=== PATIENT | male | born 1995 | race Caucasian/White ===

== ENCOUNTER 2018-08-15 13:01 | Emergency (ER) | payer SELFPAY ==
[~2018-08-15] VITALS: Ht 170.2 cm; Wt 104.3 kg
[~2018-08-15 13:01] MED LIST: ACHD5005 PO; CIPR-225 PO; CYCL10TA9 PO; HYDR-4226 PO; HYDR-757 PO; NAPR220T29 PO; ONDA4TAB8 SL; SUCR1TAB PO; SULF-222 PO
--- NOTE | 2018-08-15 13:50 | ED Integumentary General ---
General Chief Complaint: Skin/Wound Problems Stated Complaint: TESTICULAR SWELLING Nursing Triage Note: STATES HE WOKE UP THIS AM ET HIS LOWER ABD/PUBIS AREA WAS SWOLLEN, RED, ET PAINFUL. Source: patient Exam Limitations: no limitations History of Present Illness Date Seen by Provider: Aug 15, 2018 Time Seen by Provider: 13:38 Initial Comments Here with report of redness in the area of the pubis. Onset this morning. States that it is tender. States he may have a little red spot yesterday. Denies dysuria. Denies any specific wound or problem. 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 States that he sweats at night when he sleeps. Denies ever having anything like this before. Timing/Duration: yesterday, getting worse Severity: moderate Location: genitalia Possible Cause: no cause identified Associated Symptoms: edema, rash, other (erythema) Allergies and Home Medications Allergies Coded Allergies: No Known Drug Allergies (Unverified , 05/20/14) Home Medications Ciprofloxacin HCl 500 Mg Tablet, 500 MG PO BID Prescribed by: WES TERAN on 06/12/15 2338 Hydrocodone Bit/Acetaminophen 1 Each Tablet, 1-2 EACH PO Q6H PRN for PAIN Prescribed by: WES TERAN on 06/12/15 2338 Hydrocodone/Acetaminophen 1 Each Tablet, 1 EACH PO Q4H PRN for PAIN Prescribed by: JUAN ANTONIO WALKER on 04/17/16 1736 Ondansetron 4 Mg Tab.rapdis, 4 MG SL Q4H PRN for NAUSEA/VOMITING Prescribed by: WES TERAN on 06/12/15 2338 Sucralfate 1 G Tablet, 1 G PO AC Prescribed by: JUAN ANTONIO WALKER on 08/26/14 1705 Patient Home Medication List Home Medication List Reviewed: Yes Review of Systems Review of Systems Constitutional: see HPI; No chills, No fever Respiratory: no symptoms reported Cardiovascular: no symptoms reported Genitourinary: no symptoms reported Skin: see HPI, change in color, rash Psychiatric/Neurological: No Symptoms Reported Past Saipxsh-Mzmpwt-Djhpdr Hx Past Med/Social Hx: Reviewed Nursing Past Med/Soc Hx Patient Social History Alcohol Use: Occasionally Uses Recreational Drug Use: Yes Drug of Choice: marijuana Type Used: Cigarettes 2nd Hand Smoke Exposure: Yes Recent Foreign Travel: No Contact w/Someone Who Travel: No Recent Infectious Disease Expo: No Recent Hopitalizations: No Physical Abuse: No Sexual Abuse: No Immunizations Up To Date Tetanus Booster (TDap): Unknown Seasonal Allergies Seasonal Allergies: No Past Medical History Surgeries: No Respiratory: Yes Asthma Cardiac: No Neurological: No Reproductive Disorders: No Gastrointestinal: No Musculoskeletal: No Endocrine: No Cancer: No Psychosocial: No Integumentary: No Blood Disorders: No Family Medical History Reviewed Nursing Family Hx Physical Exam Vital Signs Vital Signs - First Documented 08/15/18 13:14 Temp 97.4 Pulse 103 Resp 18 B/P (MAP) 142/95 (111) Pulse Ox 97 O2 Delivery Room Air Capillary Refill : Less Than 3 Seconds General Appearance: WD/WN, no apparent distress Cardiovascular: regular rate, rhythm, no murmur Respiratory: lungs clear, normal breath sounds Skin: warm/dry, other (erythema) Skin Problem Location: other (groin to the pubis area and does seem to involve the scrotum but not the penis.) Skin Problem Character: erythema, rash, warm Progress/Results/Core Measures Results/Orders Vital Signs/I&O 08/15/18 13:14 Temp 97.4 Pulse 103 Resp 18 B/P (MAP) 142/95 (111) Pulse Ox 97 O2 Delivery Room Air Blood Pressure Mean: 111 Progress Progress Note : Progress Note Seen and evaluated. Fingerstick blood sugar ordered. Has appearance of tinea infection and we will treat as such although we will go ahead and do antibiotics as well. This was discussed with the patient who agrees. Discharged home with return precautions. Patient verbalize understanding instructions and agreement with plan. Departure Impression Primary Impression: Tinea of groin Disposition: 01 HOME, SELF-CARE Condition: Improved Departure-Patient Inst. Decision time for Depature: 13:54 Referrals: NO,LOCAL PHYSICIAN (PCP/Family) Primary Care Physician Patient Instructions: Folliculitis (DC), Jock Itch (DC) Add. Discharge Instructions: All discharge instructions reviewed with patient and/or family. Voiced understanding. Take medications as directed. You may pepper picker fqxm-hdq-bpvlsvx jock itch medicine and use per package directions. Keep area clean and dry otherwise. Prevent from overheating to the area as this will increase the likelihood of infection. Return for worse pain, swelling, fevers, drainage or other concerns as needed. Follow-up with your in a few days for recheck as needed. Scripts Sulfamethoxazole/Trimethoprim (Sulfamethoxazole-Tmp Ds Tablet) 1 Each Tablet 1 EACH PO BID, #14 TAB 0 Refills Prov: AVANI INGRAM MD 08/15/18 AVANI INGRAM MD Aug 15, 2018 13:50
[2018-08-15] MEDS ORDERED: SULF-222 PO (13:56)
[2018-08-15 14:01] VITALS: BP 140/97
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
== END 2018-08-15 14:00 | disposition home or self-care (01) ==
LOC: EDUNIT# 13:01 → ER 13:03
DX: B35.6 Tinea cruris (principal); J45.909 Unspecified asthma, uncomplicated; F12.10 Cannabis abuse, uncomplicated; Z77.22 Contact with and (suspected) exposure to environmental tobacco smoke (acute) (chronic)
CPT/HCPCS: 82962

== ENCOUNTER 2018-08-19 09:29 | Emergency (ER) | payer SELFPAY | END 2018-08-19 10:51 | disposition home or self-care (01) | LOC: ER 09:29 ==

== ENCOUNTER 2019-04-28 07:14 | Emergency (ER) | payer SELFPAY ==
[~2019-04-28] VITALS: Ht 162.5 cm; Wt 102.3 kg
[~2019-04-28 07:14] MED LIST changes: +SULF1TAB35 PO
--- NOTE | 2019-04-28 07:42 | ED Cough/URI ---
General Stated Complaint: SORE THROAT / COUGH Source: patient History of Present Illness Date Seen by Provider: Apr 28, 2019 Time Seen by Provider: 07:27 Initial Comments PT ARRIVES VIA POV FROM HOME C/O NASAL CONGESTION AND DRAINAGE, WITH PRODUCTIVE COUGH / YELLOW SPUTUM FOR THE LAST 2 WEEKS HAD SUBJECTIVE FEVER/SWEATS/CHILLS LAST POM + SHORTNESS OF BREATH AT TIMES NO CHEST PAIN, EXCEPT FROM COUGHING C/O SORE THROAT NO SICK CONTACTS TOOK OTC ALLERGY PILLS WITHOUT RELIEF SEEN AT [facility] 4-5 DAYS AGO, NO TESTS DONE, GIVEN RX FOR STEROIDS--NO IMPROVEMENT HAD ASTHMA A CHILD, OTHERWISE NO RESPIRATORY PROBLEMS AN ADULT PT SMOKES 1/2 PPD CIGARETTES, PLUS SMOKES MARIJUANA PCP: [facility] Allergies and Home Medications Allergies Coded Allergies: No Known Drug Allergies (Unverified , 05/20/14) Patient Home Medication List Home Medication List Reviewed: Yes Review of Systems Review of Systems Constitutional: see HPI, chills, diaphoresis, fever EENTM: see HPI, nose congestion, throat pain Respiratory: see HPI, cough, short of breath Cardiovascular: no symptoms reported Gastrointestinal: no symptoms reported Genitourinary: no symptoms reported Musculoskeletal: no symptoms reported Skin: no symptoms reported Psychiatric/Neurological: No Symptoms Reported Hematologic/Lymphatic: No Symptoms Reported Immunological/Allergic: no symptoms reported Past Sufohok-Ldokza-Cgqigc Hx Past Med/Social Hx: Reviewed and Corrections made Patient Social History Alcohol Use: Occasionally Uses Recreational Drug Use: Yes (THC) Drug of Choice: THC Smoking Status: Current Everyday Smoker (1 PPD) Type Used: Cigarettes (1 PPD) 2nd Hand Smoke Exposure: Yes Recent Foreign Travel: No Contact w/Someone Who Travel: No Recent Hopitalizations: No Immunizations Up To Date Tetanus Booster (TDap): Unknown Seasonal Allergies Seasonal Allergies: No Past Medical History Surgeries: No Respiratory: Yes (ASTHMA CHJLD) Asthma Cardiac: No Neurological: No Reproductive Disorders: No Gastrointestinal: No Musculoskeletal: No Endocrine: No Cancer: No Psychosocial: Yes Depression Integumentary: No Blood Disorders: No Physical Exam Vital Signs - First Documented 04/28/19 07:27 Temp 35.9 Pulse 84 Resp 18 B/P (MAP) 130/94 (106) Pulse Ox 99 O2 Delivery Room Air Capillary Refill : Height: 5'7.00" Weight: 230lbs. oz. 104.276408ee; BMI Method:Stated General Appearance: WD/WN, no apparent distress HEENT: PERRL/EOMI, other (NASAL CONGESTION AND CLEAR RHINORRHEA. NO SINUS TENDERNESS. 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, no motor/sensory deficits, alert, normal mood/affect, oriented x 3 Skin: normal color, tattoos/piercings Progress/Results/Core Measures Suspected Sepsis SIRS Temperature: Pulse: Respiratory Rate: Blood Pressure / Mean: Results/Orders Lab Results Laboratory Tests Test 04/28/19 07:36 Range/Units Group A Streptococcus Screen NEGATIVE NEGATIVE Micro Results Microbiology 04/28/19 Influenza Types A,B Antigen (VALERIANO) - Final, Complete My Orders Orders - ALY OLIVEIRA DO Chest Pa/Lat (2 View) (04/28/19 07:36) Rapid Strep A Screen (04/28/19 07:36) Influenza A And B Antigens (04/28/19 07:36) Vital Signs/I&O 04/28/19 07:27 Temp 35.9 Pulse 84 Resp 18 B/P (MAP) 130/94 (106) Pulse Ox 99 O2 Delivery Room Air Capillary Refill : Diagnostic Imaging Comments CXR--NO ACUTE PROCESS, PER RADIOLOGIST REPORT AT 0818 Reviewed: Reviewed by Me Departure Impression Primary Impression: Bronchitis Additional Impression: Upper respiratory infection Disposition: 01 HOME, SELF-CARE Condition: Stable Departure-Patient Inst. Referrals: [facility] Patient Instructions: Acute Bronchitis, Adult (DC), Bacterial Upper Respiratory Infection, Adult (DC) Add. Discharge Instructions: USE FLONASE DAILY TYLENOL AND MOTRIN NEEDED FOR PAIN OR FEVER LOTS OF FLUIDS FOLLOW UP WITH [facility] IN 3-4 DAYS IF NO BETTER Scripts Benzonatate (TESSALON PERLES) 100 Mg Capsule 1-2 TAB PO TID for Cough, #30 CAP Prov: ALY OLIVEIRA DO 04/28/19 Guaifenesin/Dextromethorphan (Mucinex Dm ER 1,200-60 mg Tab) 1 Each Tbmp.12hr 1 EACH PO BID for 10 Days, #20 EA Prov: ALY OLIVEIRA DO 04/28/19 Methylprednisolone (Medrol) 4 Mg Tab.ds.pk 4 MG PO UD, #1 PKG Prov: ALY OLIVEIRA DO 04/28/19 Loratadine/Pseudoephedrine (Claritin-D 12 Hour Tablet) 1 Each Tab.er.12h 1 EACH PO BID, #20 TAB Prov: ALY OLIVEIRA DO 04/28/19 Amoxicillin/Potassium Clav (Augmentin 875-125 Tablet) 1 Each Tablet 1 EACH PO BID for INFECTION, #20 TAB Prov: ALY OLIVEIRA DO 04/28/19 Work/School Note: Work Release Form Date Seen in the Emergency Department: Apr 28, 2019 Return to Work: Apr 30, 2019 Restrictions: No Restrictions ALY OLIVEIRA DO Apr 28, 2019 07:42
--- NOTE | 2019-04-28 08:14 | Diagnostic Imaging Report ---
CHEST PA/LAT (2 VIEW) Indication: Sore throat, congestion and cough Comparison: 08/26/2014 Findings: No focal pneumonic consolidation, pleural effusion or pneumothorax. Normal heart size and pulmonary vasculature. Impression: No acute cardiopulmonary process. Dictated by: Dictated on workstation # [id number]
[2019-04-28] MEDS ORDERED: AMOX-358 PO (08:22)
[2019-04-28] MEDS ORDERED: GUAI1TBM19 PO (08:22)
[2019-04-28] MEDS ORDERED: BENZ100C18 PO (08:22)
[2019-04-28] MEDS ORDERED: LORA1TAB59 PO (08:22)
[2019-04-28] MEDS ORDERED: METH4TAB PO (08:22)
[2019-04-28 08:38] VITALS: BP 130/94
== END 2019-04-28 08:39 | disposition home or self-care (01) ==
LOC: EDUNIT# 07:14 → ER 07:15
DX: J45.909 Unspecified asthma, uncomplicated (principal); J06.9 Acute upper respiratory infection, unspecified; F32.9 Major depressive disorder, single episode, unspecified; F17.210 Nicotine dependence, cigarettes, uncomplicated
CPT/HCPCS: 71046; 87430; 87804

== ENCOUNTER 2019-06-27 07:56 | Emergency (ER) | payer SELFPAY ==
[~2019-06-27] VITALS: Ht 170 cm; Wt 200.0 kg
[~2019-06-27 07:56] MED LIST changes: +AMOX-358 PO; +BENZ100C18 PO; +GUAI1TBM19 PO; +LORA1TAB59 PO; +METH4TAB PO
[2019-06-27] MEDS ORDERED: RT-ALBUINH IH (08:32)
--- NOTE | 2019-06-27 08:35 | ED Cough/URI ---
General Chief Complaint: Cough/Cold/Flu Symptoms Stated Complaint: SORE THROAT/WEEZING Nursing Triage Note: PT CO OF COUGH AND WHEEZING FOR APPROX 3 DAYS, PT HAS SORETHROAT FROM COUGH. PT DENIES FEVER Sepsis Screen: No Definite Risk Source: patient Exam Limitations: no limitations History of Present Illness Date Seen by Provider: Jun 27, 2019 Time Seen by Provider: 08:22 Initial Comments This 23-year-old young man presents to the emergency room with complaints of cough, congestion, sore throat, and wheezing for the past 3 days. He denies any fever. Patient is noted to have hypertension on assessment. He reports a history of chronic hypertension and reports he is supposed to be taking antihypertensive medications. He had an old prescription of Bromfed which he has tried without much benefit. He took a dose this morning. He does not smoke. Allergies and Home Medications Allergies Coded Allergies: No Known Drug Allergies (Unverified , 05/20/14) Home Medications Albuterol Sulfate 1 Puff Puff, 1-4 PUFF IH Q4H 1 PUFF = 90 MCG Prescribed by: WES TERAN on 06/27/19831 Amoxicillin/Potassium Clav 1 Each Tablet, 1 EACH PO BID Prescribed by: ALY OLIVEIRA on 04/28/19821 Benzonatate 100 Mg Capsule, 1-2 TAB PO TID Prescribed by: ALY OLIVEIRA on 04/28/19821 Guaifenesin/Dextromethorphan 1 Each Tbmp.12hr, 1 EACH PO BID Prescribed by: ALY OLIVEIRA on 04/28/19821 Loratadine/Pseudoephedrine 1 Each Tab.er.12h, 1 EACH PO BID Prescribed by: ALY OLIVEIRA on 04/28/19821 Methylprednisolone 4 Mg Tab.ds.pk, 4 MG PO UD Prescribed by: ALY OLIVEIRA on 04/28/19821 Patient Home Medication List Home Medication List Reviewed: Yes Review of Systems Review of Systems Constitutional: no symptoms reported EENTM: see HPI Respiratory: see HPI Cardiovascular: see HPI Gastrointestinal: no symptoms reported Genitourinary: no symptoms reported Musculoskeletal: no symptoms reported Skin: no symptoms reported Psychiatric/Neurological: No Symptoms Reported Hematologic/Lymphatic: No Symptoms Reported Past Mzqnlfs-Foicbb-Ykeeai Hx Past Med/Social Hx: Reviewed Nursing Past Med/Soc Hx Patient Social History Alcohol Use: Denies Use Recreational Drug Use: No Drug of Choice: THC Smoking Status: Never a Smoker Type Used: Cigarettes 2nd Hand Smoke Exposure: Yes Recent Foreign Travel: No Contact w/Someone Who Travel: No Recent Infectious Disease Expo: No Recent Hopitalizations: No Physical Abuse: No Sexual Abuse: No Immunizations Up To Date Tetanus Booster (TDap): Unknown PED Vaccines UTD: Yes Seasonal Allergies Seasonal Allergies: No Past Medical History Surgeries: No Respiratory: Yes (ASTHMA CHJLD) Asthma Cardiac: No Neurological: No Reproductive Disorders: No Gastrointestinal: No Musculoskeletal: No Endocrine: No Cancer: No Psychosocial: Yes Depression Integumentary: No Blood Disorders: No Physical Exam Vital Signs - First Documented 06/27/19 06/27/19 08:00 08:42 Temp 36.4 Pulse 100 Resp 18 B/P (MAP) 154/101 (118) Pulse Ox 98 Capillary Refill : Less Than 3 Seconds Height: 5'7.00" Weight: 230lbs. oz. 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, no motor/sensory deficits, alert, normal mood/affect, oriented x 3 Skin: normal color, warm/dry Progress/Results/Core Measures Suspected Sepsis Recent Fever Within 48 Hours: No Infection Criteria Present: None New/Unexplained Altered Menta: No Sepsis Screen: No Definite Risk SIRS Temperature: Pulse: 100 Respiratory Rate: 18 Blood Pressure 154 /101 Mean: 118 Results/Orders Vital Signs/I&O 06/27/19 06/27/19 08:00 08:42 Temp 36.4 36.4 Pulse 100 100 Resp 18 18 B/P (MAP) 154/101 (118) 154/101 (118) Pulse Ox 98 Capillary Refill : Less Than 3 Seconds Blood Pressure Mean: 118 POS Progress Note : Progress Note Patient appears to have viral URI with bronchitis/bronchospasm. He was prescribed an albuterol inhaler and instructions for use were reviewed. We also discussed his cerumen impaction. He is in the habit of using Q-tips and we discussed proper use of Q-tips for the external room only. I advised him to use ehqg-xae-wlzkzxh earwax removal drops to eliminate the cerumen impaction. I advised him to follow-up with a primary care provider for treatment of his hypertension. I also advised him to avoid any stimulant decongestant medications other than possibly short-term use of Afrin to avoid exacerbation of his hypertension. Departure Impression Primary Impression: Acute bronchitis Qualified Codes: J20.9 - Acute bronchitis, unspecified Additional Impressions: Hypertension Qualified Codes: I10 - Essential (primary) hypertension Cerumen impaction Qualified Codes: H61.23 - Impacted cerumen, bilateral Disposition: 01 HOME, SELF-CARE Condition: Stable Departure-Patient Inst. Referrals: NO,LOCAL PHYSICIAN (PCP/Family) Primary Care Physician Patient Instructions: Acute Bronchitis, Adult (DC), High Blood Pressure in Adults Add. Discharge Instructions: Use your inhaler up to 4 puffs and a 4 hour period of time for her wheezing and shortness of breath. Follow-up with a primary care provider regarding your high blood pressure (hypertension). Do not use any cough or cold medications that contain a decongestant such as phenylephrine or pseudoephedrine. Review the label including active ingredients on the back label before using any xpga-eru-vexfyjy cough or cold medications. Decongestant medications may increase your blood pressure. You may use a nasal steroid such as Flonase to help reduce inflammation and drainage in the nasal cavity. If congestion is intolerable, short-term use (no greater than 3 days) of Afrin may be acceptable. Return to care if you have worsening symptoms or develop new symptoms such as high fever, shortness of breath not responsive to your inhaler, etc. You may use Tylenol (acetaminophen) and/or ibuprofen for minor aches and pains. All discharge instructions reviewed with patient and/or family. Voiced understanding. Scripts Albuterol Sulfate (PROAIR HFA) 1 Puff Puff 1-4 PUFF IH Q4H, #1 PUFF 1 PUFF = 90 MCG Prov: WES MONROE MD 11/13/19 Work/School Note: Work Release Form Date Seen in the Emergency Department: Jun 27, 2019 Return to Work: Jun 28, 2019 Restrictions: Return-No Vomiting(24hrs) WES MONROE MD Jun 27, 2019 08:35 POS
[2019-06-27 08:42] VITALS: BP 154/101
== END 2019-06-27 08:44 | disposition home or self-care (01) ==
LOC: EDUNIT# 07:56 → ER 07:58
DX: J20.9 Acute bronchitis, unspecified (principal); I10 Essential (primary) hypertension; H61.23 Impacted cerumen, bilateral; J45.909 Unspecified asthma, uncomplicated; F32.9 Major depressive disorder, single episode, unspecified; Z79.52 Long term (current) use of systemic steroids; Z77.22 Contact with and (suspected) exposure to environmental tobacco smoke (acute) (chronic)
CPT/HCPCS: 99282

== ENCOUNTER 2019-10-02 09:50 | Emergency (ER) | payer SELFPAY ==
[~2019-10-02] VITALS: Ht 170 cm; Wt 100.0 kg
[~2019-10-02 09:50] MED LIST changes: +RT-ALBUINH IH
--- NOTE | 2019-10-02 10:48 | ED Upper Extremity ---
General Chief Complaint: Upper Extremity Stated Complaint: R HAND PAIN Nursing Triage Note: PT CO OF R HAND PAIN STATES PUNCHED TRUCK THIS AM Nursing Sepsis Screen: No Definite Risk Source: patient Exam Limitations: no limitations History of Present Illness Date Seen by Provider: Oct 02, 2019 Time Seen by Provider: 10:33 Initial Comments Patient arrives to the ER by private conveyance with his significant other and chief complaint that about 8:30 this morning, 2 hours prior to arrival he struck the bed of a truck with his right fist. He is having some swelling, discoloration and pain as well as limitation to his range of motion in his right hand. No previous fracture. No other significant medical history. No numbness tingling. Allergies and Home Medications Allergies Coded Allergies: No Known Drug Allergies (Unverified , 05/20/14) Home Medications No Active Prescriptions or Reported Meds Patient Home Medication List Home Medication List Reviewed: Yes Review of Systems Constitutional: No chills, No diaphoresis EENTM: No ear discharge, No ear pain Respiratory: No cough, No short of breath Cardiovascular: No chest pain, No edema Gastrointestinal: No abdominal pain, No nausea, No vomiting Genitourinary: No discharge, No dysuria Musculoskeletal: see HPI; No back pain; joint pain Skin: see HPI Past Qeahoqa-Ayutln-Pvqcaw Hx Patient Social History Alcohol Use: Occasionally Uses Recreational Drug Use: No Drug of Choice: THC Smoking Status: Current Everyday Smoker Type Used: Cigarettes 2nd Hand Smoke Exposure: Yes Recent Foreign Travel: No Contact w/Someone Who Travel: No Recent Infectious Disease Expo: No Recent Hopitalizations: No Immunizations Up To Date Tetanus Booster (TDap): Unknown PED Vaccines UTD: Yes Seasonal Allergies Seasonal Allergies: No Past Medical History Surgeries: No Respiratory: Yes (ASTHMA CHJLD) Asthma Cardiac: No Neurological: No Reproductive Disorders: No Gastrointestinal: No Musculoskeletal: No Endocrine: No Cancer: No Psychosocial: Yes Depression Integumentary: No Blood Disorders: No Physical Exam Vital Signs Vital Signs - First Documented 10/02/19 10:20 Temp 36.8 Pulse 95 Resp 18 B/P (MAP) 129/87 (101) Pulse Ox 98 Capillary Refill : Less Than 3 Seconds Height, Weight, BMI Height: 5'7.00" Weight: 230lbs. oz. [id number]; 34.00 BMI Method:Stated General Appearance: WD/WN, no apparent distress Neck: full range of motion, normal inspection Cardiovascular: normal peripheral pulses, regular rate, rhythm Respiratory: no respiratory distress, no accessory muscle use Shoulder: normal inspection, non-tender, no evidence of injury, normal ROM Elbow/Forearm: normal inspection, non-tender, no evidence of injury, normal ROM, Right Wrist: Yes normal inspection, Yes non-tender, Yes no evidence of injury, Yes normal ROM Hand: Right, ecchymosis, swelling (mild) Neurologic/Psychiatric: no motor/sensory deficits, alert, normal mood/affect Skin: warm/dry, ecchymosis Progress/Results/Core Measures Results/Orders My Orders Orders - LUIS ARMANDO TOBAR Hand, Right, 3 Views (10/02/19 10:24) Vital Signs/I&O 10/02/19 10:20 Temp 36.8 Pulse 95 Resp 18 B/P (MAP) 129/87 (101) Pulse Ox 98 Blood Pressure Mean: 101 Progress Progress Note : Time: 10:48 Progress Note Plain films right hand Diagnostic Imaging Diagonstic Imaging: Xray Plain Films/CT/US/NM/MRI: hand (R) Comments NAME: [facility] REC#: [id number] PT STATUS: REG ER : 1995 PHYSICIAN: LUIS ARMANDO TOBAR MD ADMIT DATE: 10/02/19/ER Draft Date of Exam:10/02/19 HAND, RIGHT, 3 VIEWS INDICATION: Pain and swelling. FINDINGS: There is a chronic fracture deformity of the distal 5th metacarpal. There are however some faint lucencies within the distal 5th metacarpal which may reflect minimally displaced fracture. There is no other fracture or dislocation. Soft tissues are unremarkable. IMPRESSION: Findings suspect for acute on chronic fracture of the distal 5th metacarpal. Recommend clinical correlation and followup imaging in 7-10 days. Dictated on workstation # [id number] Dict: 10/02/19 1047 Trans: 10/02/19 1049 [facility] [id number] Interpreted by: KATJA MEZA MD Electronically signed by: Reviewed: Reviewed by Me Departure Impression Primary Impression: Fracture of hand Qualified Codes: S62.91XA - Unspecified fracture of right wrist and hand, initial encounter for closed fracture Disposition: HOME, SELF-CARE Condition: Stable Departure-Patient Inst. Decision time for Depature: 11:14 Referrals: NO,LOCAL PHYSICIAN (PCP) Primary Care Physician GOGO ACOSTA MD Patient Instructions: Hand Fracture, Common Wrist Injuries (DC) Add. Discharge Instructions: Apply ice for 20 minutes every 4 hours for the first couple days. Elevate the hand above the level of your heart. Keep the hand wrapped in a brace or splint and plan to follow up with either your primary care doctor or Dr. Acosta, orthopedic surgery in 7-10 days. Tylenol 650 mg every 8 hours as needed for pain. Ibuprofen 800 mg every 8 hours as needed for pain. Hydrocodone one tablet every 6 hours as needed for breakthrough pain. All discharge instructions reviewed with patient and/or family. Voiced understanding. Scripts Hydrocodone Bit/Acetaminophen (Hydrocodone/Acetaminophen 5/325mg Tablet) 1 Tab Tab 1 EACH PO Q4-6HR PRN for PAIN-MODERATE MDD 10 for 3 Days, #12 TAB 0 Refills Prov: LUIS ARMANDO TOBAR 10/02/19 LUIS ARMANDO TOBAR Oct 02, 2019 10:48
[2019-10-02] MEDS ORDERED: ACHD5005 PO (11:21)
[2019-10-02 11:38] VITALS: BP 129/87
== END 2019-10-02 11:39 | disposition home or self-care (01) ==
LOC: EDUNIT# 09:50 → ER 09:53
DX: S62.306A Unspecified fracture of fifth metacarpal bone, right hand, initial encounter for closed fracture (principal); F17.210 Nicotine dependence, cigarettes, uncomplicated; W22.8XXA Striking against or struck by other objects, initial encounter
CPT/HCPCS: 73130